=== PATIENT | male | born 1970 | race Caucasian/White ===

== ENCOUNTER 2017-10-29 21:41 | Emergency (ER) | payer OTHER ==
[2017-10-29 22:45] LABS: Absolute Lymphocytes (CBC) 1.2 K/uL (0.7-4.9); Absolute Monocytes 0.5 K/uL (0.1-1.3); Absolute Neutrophil 1.8 K/uL (1.8-8.0); Basophils % 0.4 % (0-1.3); Eosinophils % 1.5 % (0-4.4); Hematocrit 37.4 % (39.6-49.0); Lymphocytes % 33.5 % (15.3-44.8); MCH 33.3 pg (27.0-35.0); MCV 97.3 fL (80-100); RBC Red Blood Cell Count 3.85 M/uL (4.33-5.43)
[2017-10-29 22:53] LABS: Bicarbonate 28 mEq/L (21-31); Glucose Level 116 mg/dL (65-120); Lipase 37 U/L (22-51); Potassium 3.2 mEq/L (3.6-5.0); Sodium Level 139 mEq/L (135-145)
[2017-10-29 22:59] LABS: ALT/SGPT 17 IU/L (10-60); AST/SGOT 21 IU/L (10-42); Albumin 3.7 g/dL (3.2-5.5); Alkaline Phosphatase 108 IU/L (42-121); BUN Blood Urea Nitrogen 8 mg/dL (6-20); Bilirubin Direct 0.1 mg/dL (0-0.2); Bilirubin Total 0.4 mg/dL (0.3-1.2); Glomerular Filtration Rate > 90 mL/min (=/>90); Protein, Total 6.4 g/dL (6.0-8.3)
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
[2017-10-30 00:26] VITALS: TEMP 97.8
[2017-10-30 00:27] VITALS: BP 100/79; O2SAT 96
[2017-10-30 00:51] LABS: Urine Culture Reflex Order NOT NEEDED
[2017-10-30 00:52] LABS: Urine Blood NEGATIVE (NEG); Urine Glucose NEGATIVE (NEG); Urine Protein NEGATIVE (NEG); Urine Specific Gravity 1.015 (1.005-1.030); Urine pH 8.5 (5.0-7.0)
[2017-10-30 00:52] LABS: Urine Bacteria <20 /HPF (NONE SEEN); Urine RBC <5 /HPF (NONE SEEN)
--- NOTE | 2017-10-30 08:38 | RAD REPORT ---
EXAM DESCRIPTION: CT - Stone Protocol - 10/30/2017 6:11 am CLINICAL HISTORY: Flank pain. Blood in stool. COMPARISON: 09/07/2013 TECHNIQUE: Axial images were obtained without oral or IV contrast. Lack of contrast limits solid org an and vascular assessment. The [id number] spans the entirety of the system partially obscuring uppermost abdomen and lung bases. Coronal reformatted images were obtained and reviewed. All CT scans are performed using dose optimization technique as appropriate and may include automated exposure control or mA/KV adjustment according to patient size. FINDINGS: The lower lung fu are clear. Cholecystectomy clips. Imaged portions of the liver and spleen show no suspicious findings on non-contrast imaging. The panc reas and adrenal glands are normal. No pathologic lymphadenopathy in the abdomen or pelvis. Punctate left renal calculi. No hydronephrosis. No bowel obstruction, free air, free fluid or abscess. Appendectomy suspected.Moderate fecal retentio n in the colon. Scattered diverticulosis coli without diverticulitis. Old compression deformity affects the L2 vertebral body. IMPRESSION: Punctate left renal calculi. No hydronephrosis. Moderate fecal retention in the colon.
== END 2017-10-30 00:21 | disposition home or self-care (01) ==
LOC: ER 21:41
DX: K92.2 Gastrointestinal hemorrhage, unspecified (principal); G40.909 Epilepsy, unspecified, not intractable, without status epilepticus; Z88.1 Allergy status to other antibiotic agents; Z88.3 Allergy status to other anti-infective agents
CPT/HCPCS: 36415; 74176; 76377; 80048; 80076; 81003; 81015; 83690; 85025; 99284

== ENCOUNTER 2018-02-12 20:05 | Emergency (ER) | payer OTHER ==
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
[2018-02-12 21:37] VITALS: BP 122/82; TEMP 97.9; O2SAT 96
== END 2018-02-12 21:28 | disposition home or self-care (01) ==
LOC: ER 20:05
DX: Z04.1 Encounter for examination and observation following transport accident (principal); V49.50XA Passenger injured in collision with unspecified motor vehicles in traffic accident, initial encounter; R62.50 Unspecified lack of expected normal physiological development in childhood
CPT/HCPCS: 99281

== ENCOUNTER 2019-02-15 23:10 | Emergency (ER) | payer OTHER ==
--- OUTSIDE RECORDS SUMMARY | 2019-02-15 23:15 | XMS REPORT ---
:1970 [facility] [address] [place] [address] Dr. Orta [address] [place] [id number] Care Team Providers Name Role Phone Unavailable Unavailable Unavailable Problems This patient has no known problems. Allergies, Adverse Reactions, Alerts This patient has no known allergies or adverse reactions. Medications This patient has no known medications.
--- NOTE | 2019-02-16 02:59 | ER ---
Nurse's Notes [facility] Name: Torey Pineda Age: 48 yrs Sex: Male : 1970 Arrival Date: 02/15/2019 Time: 23:13 Bed 3 Private MD: Diagnosis: Epilepsy and recurrent seizures Presentation: 02/15 23:21 Presenting complaint: EMS states: Patient had witnessed seizure by Home Health lp1 Provider, noted to be foaming at the mouth which is not normal for patient's seizures, post-ictal on arrival of EMS; Per provider, patient is not usually this confused after seizure. Transition of care: patient was not received from another setting of care. Onset of symptoms was February 15, 2019. Risk Assessment: Do you want to hurt yourself or someone else? Patient reports no desire to harm self or others. Initial Sepsis Screen: Does the patient meet any 2 criteria? No. Patient's initial sepsis screen is negative. Does the patient have a suspected source of infection? No. Patient's initial sepsis screen is negative. Care prior to arrival: Glucose check: 99. 23:21 Method Of Arrival: EMS: [facility] lp1 23:21 Acuity: TAWNYA 2 lp1 Triage Assessment: 02/16 00:05 General: Appears in no apparent distress. comfortable, Behavior is calm, cooperative, ao appropriate for age. Historical: - Allergies: 02/15 23:32 Cephalexin; lp1 23:32 Keflex; lp1 - Home Meds: 23:32 Depakote 500 mg Oral TbEC 1 tab 3 times per day [Active]; Seroquel 400 mg Oral tab lp1 nightly [Active]; Lamictal 100 mg Oral tab 1 tab 2 times per day [Active]; Risperdal 2 mg Oral tab 2 times per day [Active]; levothyroxine 25 mcg tab 1 tab once daily [Active]; carbamazepine 200 mg Oral tab 2 tabs three times a day [Active]; Vimpat 50 mg oral tab 1 tab 2 times per day [Active]; gabapentin 800 mg Oral tab 1 tab 3 times per day [Active]; docusate sodium 100 mg Oral cap 2 caps once daily [Active]; - PMHx: 23:32 Anemia; INTERMITTENT EXPLOSIVE DISORDER; Pilonidol Cyst; Seizures; SUPERFICIAL lp1 KERATITIS; Schizophrenia; - PSHx: 23:32 Unable to obtain; lp1 - Immunization history:: Adult Immunizations up to date. - Social history:: Smoking status: Patient/guardian denies using tobacco. - Ebola Screening: : No symptoms or risks identified at this time. Screenin/24 00:05 Abuse screen: Denies threats or abuse. Denies injuries from another. Nutritional ao screening: No deficits noted. Tuberculosis screening: No symptoms or risk factors identified. Fall Risk None identified. Assessment: 02/15 23:20 General: Appears in no apparent distress. comfortable, Behavior is calm, cooperative, ao appropriate for age. Pain: Denies pain. Neuro: Level of Consciousness is awake, alert, obeys commands, Oriented to person, Moves all extremities. Full function Speech is normal, Facial symmetry appears normal. Cardiovascular: Reports None Capillary refill < 3 seconds Patient's skin is warm and dry. Respiratory: Airway is patent Respiratory effort is even, unlabored, Respiratory pattern is regular, symmetrical. GI: Abdomen is round obese. : No signs and/or symptoms were reported regarding the genitourinary system. EENT: No signs and/or symptoms were reported regarding the EENT system. Derm: Skin is intact, Skin is pink, warm \\T\\ dry. normal, Skin temperature is warm. Musculoskeletal: Circulation, motion, and sensation intact. Range of motion: intact in all extremities. 02/16 00:03 Reassessment: Patient refused IV. Patient was agitated and state, "I don't want and IV. ao I'll take my medicine.". TRISHA Corbett was notified and stated to just watch him. 01:15 Reassessment: Called Patient Ombudsperson of patient's place of residence, states to contact 1 patient's mother who is legal guardian, Yvonnerocio Fabaina, no answer from mother at [phone] or [phone]. 02:37 Reassessment: Patient appears in no apparent distress at this time. Patient and/or ao family updated on plan of care and expected duration. Pain level reassessed. Patient under do distress. Waiting on X-ray results. 03:06 Reassessment: Spoke with Rupali, dry starch supervisor of [facility]; States she cannot leave [facility] to shredder picker patient, will call back when she is able to arrange transportation. 03:57 Reassessment: Patient appears in no apparent distress at this time. Patient and/or ao family updated on plan of care and expected duration. Pain level reassessed. Waiting emotionally impaired teacher back from Rupali, dry starch supervisor of [facility]. 04:55 Reassessment: Patient was discovered having seizure activity at 0430. Seizure lasted ao about 3-4 min. IV was started while patient seizing and lab work was collected and sent to the lab. Patient in postictal stage was confused and agitated trying to get off bed. Patient was move to ER trauma room 3 for close monitoring. 05:55 Reassessment: Patient appears in no apparent distress at this time. Patient and/or ao family updated on plan of care and expected duration. Pain level reassessed. Patient sleeping with no SS of distress. Waiting on Lab work results. 06:05 Reassessment: Provider verbal order to administer Keppra 1 g IV now and patient's home lp1 dose of Depakote. 06:29 Reassessment: Spoke to Ruapli and stated she will be picking patient up in few min. ao 06:55 Reassessment: Called Rupali again and stated patient will be shredder picker in few min. Patient ao is Ready waiting in a wheelchair. 07:00 Reassessment: RECD REPORT FROM BRITTANY DICKEY. 48YO WM WITH H/O MR AND SZ. TRANSPORT PENDING. bp 07:13 Reassessment: TRANSPORT ON SCENE. PT [facility] WITH SENIOR CARE. bp Vital Signs: 02/15 23:24 BP 114 / 82; Pulse 96; Resp 18; Temp 99(O); Pulse Ox 94% on R/A; Weight 79.38 kg; lp1 Height 5 ft. 5 in. (165.10 cm); Pain 0/10; 02/16 01:27 BP 121 / 93; Pulse 85; Resp 15; Pulse Ox 97% on R/A; lp1 02:37 BP 123 / 91; Pulse 82; Resp 16; Pulse Ox 97% on R/A; Pain 0/10; ao 03:50 BP 114 / 82; Pulse 80; Resp 16; Pulse Ox 100% on R/A; ao 04:25 BP 130 / 85; Pulse 86; Resp 18; Pulse Ox 100% on R/A; ao 04:35 BP 147 / 98; Pulse 115; Resp 30; Pulse Ox 96% on Non-rebreather mask; ao 05:07 BP 113 / 66; Pulse 93; Resp 15; Pulse Ox 97% on R/A; Pain 0/10; ao 06:01 BP 99 / 83; Pulse 78; Resp 13; Pulse Ox 98% on R/A; ao 02/15 23:24 Body Mass Index 29.12 (79.38 kg, 165.10 cm) lp1 Damaso Coma Score: 00:05 Eye Response: spontaneous(4). Verbal Response: oriented(5). Motor Response: obeys ao commands(6). Total: 15. ED Course: 02/15 23:13 Patient arrived in ED. ak1 23:20 Brittany Barros, RN is Primary Nurse. ao 23:24 Triage completed. lp1 23:25 Arm band placed on. lp1 23:32 Placed in gown. Bed in low position. Call light in reach. Seizure precautions initiated.lp1 23:33 Darien Ramirez PA is PHCP. cp 23:33 Omer Mathews MD is Attending Physician. cp 02/16 02:10 X-ray completed. Portable x-ray completed in exam room. Patient tolerated procedure kw well. 02:12 XRAY Chest (1 view) In Process Unspecified. EDMS 04:40 Initial lab(s) drawn, by me, sent to lab. Inserted saline lock: 18 gauge in left jb4 antecubital area, using aseptic technique. Blood collected. 06:41 No provider procedures requiring assistance completed. Patient did not have IV access ao during this emergency room visit. intact, bleeding controlled, No redness/swelling at site. Pressure dressing applied. Administered Medications: 06:23 Drug: Keppra 1000 mg Route: IV; Rate: per protocol; Site: left antecubital; ao 07:13 Follow up: IV Status: Completed infusion; IV Intake: 100ml bp 06:23 Drug: Depakote 500 mg Route: PO; ao 07:13 Follow up: Response: No adverse reaction bp Intake: 07:13 IV: 100ml; Total: 100ml. bp Output: 06:25 Urine: 1000ml (Voided); Total: 1000ml. ao Outcome: 02:58 Discharge ordered by . cp 06:41 Discharged to home ambulatory. ao 06:41 Condition: stable 06:41 Discharge instructions given to patient, Instructed on discharge instructions, follow up and referral plans. Demonstrated understanding of instructions, follow-up care, medications. 07:14 Patient left the ED. bp Signatures: Dispatcher [employer] EDJannette Villatoro Laura, RN RN lp1 Sade Pavon RN RN ak1 Darien Ramirez PA PA cp Ortiz, Alex, RN RN Kendrick Salcedo RN RN jb4 Robert Moore RN RN bp Corrections: (The following items were deleted from the chart) 01:59 01:28 Reassessment: No changes from previously documented assessment. Patient and/or lp1 family updated on plan of care and expected duration. Pain level reassessed. lp1
--- NOTE | 2019-02-16 02:59 | EDPHYS ---
Physician Documentation [facility] Name: Torey Pineda Age: 48 yrs Sex: Male : 1970 Arrival Date: 02/15/2019 Time: 23:13 Bed 3 Private MD: ED Physician Omer Mathews HPI: 02/16 00:10 This 48 yrs old Male presents to ER via EMS with complaints of Seizure. cp 00:10 The patient presents after having a single isolated seizure, that lasted an unknown cp period of time, the episode(s) was witnessed, staff at residence. Character of seizure(s): Loss of consciousness: the patient experienced loss of consciousness, Motor activity: generalized, shaking all over, reported foaming at the mouth. Seizure onset: today. Seizure Hx: Last seizure: The patient's last seizure is unknown, Usual frequency: unknown, Seizure medications: Lamictal, tegretol, Depakote. Associated injury: The patient did not suffer any apparent associated injury. Historical: - Allergies: 02/15 23:32 Cephalexin; lp1 23:32 Keflex; lp1 - Home Meds: 23:32 Depakote 500 mg Oral TbEC 1 tab 3 times per day [Active]; Seroquel 400 mg Oral tab lp1 nightly [Active]; Lamictal 100 mg Oral tab 1 tab 2 times per day [Active]; Risperdal 2 mg Oral tab 2 times per day [Active]; levothyroxine 25 mcg tab 1 tab once daily [Active]; carbamazepine 200 mg Oral tab 2 tabs three times a day [Active]; Vimpat 50 mg oral tab 1 tab 2 times per day [Active]; gabapentin 800 mg Oral tab 1 tab 3 times per day [Active]; docusate sodium 100 mg Oral cap 2 caps once daily [Active]; - PMHx: 23:32 Anemia; INTERMITTENT EXPLOSIVE DISORDER; Pilonidol Cyst; Seizures; SUPERFICIAL lp1 KERATITIS; Schizophrenia; - PSHx: 23:32 Unable to obtain; lp1 - Immunization history:: Adult Immunizations up to date. - Social history:: Smoking status: Patient/guardian denies using tobacco. - Ebola Screening: : No symptoms or risks identified at this time. ROS: 02/16 00:15 Constitutional: Negative for fever. cp 00:15 Neuro: Positive for history of seizure. cp 00:15 Unable to obtain ROS due to intellectual disability. Exam: 00:20 ECG was reviewed by the Attending Physician. cp 00:22 Constitutional: The patient appears in no acute distress, alert, awake, cp non-diaphoretic, non-toxic, well developed, well nourished. 00:22 Head/Face: Normocephalic, atraumatic. cp 00:22 Eyes: Periorbital structures: appear normal, Pupils: equal, round, and reactive to light and accomodation, Conjunctiva: normal, no exudate, no injection, Lids and lashes: appear normal, bilaterally. 00:22 ENT: External ear(s): are unremarkable, Nose: is normal, Mouth: Lips: moist, Oral mucosa: pink and intact, moist, Posterior pharynx: Airway: no evidence of obstruction, patent. 00:22 Neck: ROM/movement: is normal, is supple, without pain, no range of motions limitations, no nuchal rigidity. 00:22 Chest/axilla: Inspection: normal, Palpation: is normal, no crepitus, no tenderness. 00:22 Cardiovascular: Rate: normal, Rhythm: regular. 00:22 Respiratory: the patient does not display signs of respiratory distress, Respirations: normal, no use of accessory muscles, no retractions, no splinting, no tachypnea, labored breathing, is not present, Breath sounds: are clear throughout, no decreased breath sounds, no stridor, no wheezing. 00:22 Abdomen/GI: Inspection: abdomen appears normal, Palpation: abdomen is soft and non-tender, in all quadrants. 00:22 Back: vertebral tenderness, is not appreciated. 00:22 Neuro: Orientation: no acute changes, Mentation: no acute changes, Motor: moves all fours, strength is normal. Vital Signs: 02/15 23:24 BP 114 / 82; Pulse 96; Resp 18; Temp 99(O); Pulse Ox 94% on R/A; Weight 79.38 kg; lp1 Height 5 ft. 5 in. (165.10 cm); Pain 0/10; 02/16 01:27 BP 121 / 93; Pulse 85; Resp 15; Pulse Ox 97% on R/A; lp1 02:37 BP 123 / 91; Pulse 82; Resp 16; Pulse Ox 97% on R/A; Pain 0/10; ao 03:50 BP 114 / 82; Pulse 80; Resp 16; Pulse Ox 100% on R/A; ao 04:25 BP 130 / 85; Pulse 86; Resp 18; Pulse Ox 100% on R/A; ao 04:35 BP 147 / 98; Pulse 115; Resp 30; Pulse Ox 96% on Non-rebreather mask; ao 05:07 BP 113 / 66; Pulse 93; Resp 15; Pulse Ox 97% on R/A; Pain 0/10; ao 06:01 BP 99 / 83; Pulse 78; Resp 13; Pulse Ox 98% on R/A; ao 02/15 23:24 Body Mass Index 29.12 (79.38 kg, 165.10 cm) lp1 Nunda Coma Score: 00:05 Eye Response: spontaneous(4). Verbal Response: oriented(5). Motor Response: obeys ao commands(6). Total: 15. MDM: 02/15 23:48 Patient medically screened. cp 02/16 02:55 Data reviewed: vital signs, nurses notes, EKG, radiologic studies, plain films. Test cp interpretation: by ED physician or midlevel provider: chest xray negative for infiltrates. ED course: VSS. Patient appears back to baseline. No seizure activity observed while in ED. Will discharge back to patient's intermediate care facility. 02/15 23:47 Order name: Acetaminophen cp 02/15 23:47 Order name: Basic Metabolic Panel; Complete Time: 06:38 cp 02/16 06:39 Interpretation: Within normal limits: GFR 84. tw4 02/15 23:47 Order name: CBC with Diff; Complete Time: 06:38 cp 02/16 06:39 Interpretation: Within normal limits. tw4 02/15 23:47 Order name: ETOH Level; Complete Time: 06:38 cp 02/15 23:47 Order name: Hepatic Function; Complete Time: 06:38 cp 02/16 06:39 Interpretation: Normal except: AST 14; GLOB 3.8. tw4 02/15 23:47 Order name: PT-INR; Complete Time: 06:38 cp 02/15 23:47 Order name: Ptt, Activated; Complete Time: 06:38 cp 02/15 23:47 Order name: Salicylate; Complete Time: 06:38 cp 07/24 06:39 Interpretation: Within normal limits: MILTON 1.8. tw4 02/15 23:47 Order name: Urine Drug Screen; Complete Time: 06:38 cp 02/15 23:47 Order name: Carbamazepine (tegretol); Complete Time: 06:38 cp 02/15 23:47 Order name: Depakote; Complete Time: 06:38 cp 02/15 23:48 Order name: Acetaminophen Level; Complete Time: 06:38 EDMS 02/16 01:58 Order name: XRAY Chest (1 view) cp 02/16 05:57 Order name: Urine Dipstick--Ancillary (enter results); Complete Time: 06:38 mw2 02/15 23:47 Order name: EKG; Complete Time: 23:50 cp 02/15 23:47 Order name: EKG - Nurse/Tech; Complete Time: 00:11 cp 02/15 23:47 Order name: Urine Dipstick-Ancillary (obtain specimen); Complete Time: 05:11 cp 02/16 05:11 Order name: IV Saline Lock; Complete Time: 05:11 ao 02/16 05:11 Order name: Labs collected and sent; Complete Time: 05:12 ao EC:20 Rate is 87 beats/min. Rhythm is regular. PA interval is normal. QRS interval is normal. cp QT interval is normal. Interpreted by me. Reviewed by me. Administered Medications: 06:23 Drug: Keppra 1000 mg Route: IV; Rate: per protocol; Site: left antecubital; ao 07:13 Follow up: IV Status: Completed infusion; IV Intake: 100ml bp 06:23 Drug: Depakote 500 mg Route: PO; ao 07:13 Follow up: Response: No adverse reaction bp Disposition: 03:10 Chart complete. cp Disposition: 02/16/19 02:58 Discharged to Home. Impression: Epilepsy and recurrent seizures. - Condition is Stable. - Discharge Instructions: Seizure, Adult. - Medication Reconciliation Form, Thank You Letter, Antibiotic Education, Prescription Opioid Use form. - Follow up: Emergency Department; When: As needed; Reason: Worsening of condition. - Problem is an acute exacerbation. - Symptoms have improved. Signatures: Dispatcher [employer] EDNM Leticia Snyder RN RN lp1 Darien Ramirez PA PA cp Ortiz, Alex, RN RN ao Peltier, Brian, RN RN bp Omer Mathews MD MD tw4 Corrections: (The following items were deleted from the chart) 00:06 02/15 23:49 IV Saline Lock ordered. cp ao 02/16 00:07 02/15 23:49 Labs collected and sent ordered. goldie matias 02/16 07:14 02:58 02/16/2019 02:58 Discharged to Home. Impression: Epilepsy and recurrent seizures. bp Condition is Stable. Forms are Medication Reconciliation Form, Thank You Letter, Antibiotic Education, Prescription Opioid Use. Follow up: Emergency Department; When: As needed; Reason: Worsening of condition. Problem is an acute exacerbation. Symptoms have improved. cp
[2019-02-16 05:27] LABS: Absolute Lymphocytes (CBC) 3.6 K/uL (0.7-4.9); Basophils % 0.3 % (0-1.3); Hematocrit 45.2 % (39.6-49.0); Lymphocytes % 44.4 % (15.3-44.8); MPV 8.8 fL (7.6-11.3); RBC Red Blood Cell Count 4.54 M/uL (4.33-5.43)
[2019-02-16 05:31] LABS: Protime INR 0.98
[2019-02-16 05:35] LABS: Barbiturates NEGATIVE (NEGATIVE); Benzodiazepines NEGATIVE (NEGATIVE); Cocaine NEGATIVE (NEGATIVE); METHAMPHETAM NEGATIVE (NEGATIVE); Methadone NEGATIVE (NEGATIVE); Opiates NEGATIVE (NEGATIVE); Phencyclidine NEGATIVE (NEGATIVE); THC Cannibis NEGATIVE (NEGATIVE)
[2019-02-16 05:58] LABS: ALT/SGPT 21 U/L (12-78); AST/SGOT 14 U/L (15-37); Albumin 4.1 g/dL (3.4-5.0); Alkaline Phosphatase 60 U/L (45-117); BUN Blood Urea Nitrogen 12 mg/dL (7-18); Bicarbonate 23 mmol/L (21-32); Bilirubin Direct 0.1 mg/dL (0-0.2); Bilirubin Total 0.4 mg/dL (0.2-1.0); Glucose Level 92 mg/dL (74-106); Potassium 3.9 mmol/L (3.5-5.1); Protein, Total 7.9 g/dL (6.4-8.2); Sodium Level 143 mmol/L (136-145)
[2019-02-16 06:09] LABS: Urine Blood NEGATIVE (NEG); Urine Glucose NEGATIVE (NEG); Urine Protein NEGATIVE (NEG)
[2019-02-16] MEDS ORDERED: LEVETIRACETAM 500 MG/5 ML VIAL IV ONE ×2 (06:27)
[2019-02-16] MEDS ORDERED: NA CHLORIDE 0.9% 100 ML IV ONE (06:28)
[2019-02-16] MEDS ORDERED: DIVALPROEX DR 250 MG TAB PO ONE (06:28)
[2019-02-16 07:23] VITALS: TEMP 99
[2019-02-16 07:33] VITALS: BP 99/83; O2SAT 98
--- NOTE | 2019-02-16 08:43 | RAD REPORT ---
EXAM DESCRIPTION: RAD - Chest Single View - 02/16/2019 2:13 am CLINICAL HISTORY: Seizure, shortness of breath COMPARISON: August 2017 TECHNIQUE: AP portable chest image was obtained 0211 hours . FINDINGS: Very low lung volumes noted. This accentuates interstitial pattern. No substantial change from the comparison. No focal mass, consolidation or significant failure finding. Trachea is midline. Heart and vasculature are normal. No measurable pleural effusion and no pneumothorax. No acute bone findings seen. There is chronic right-sided AC joint separation. No acute aortic findings suspected. IMPRESSION: Limited shallow inspiration film without an acute cardiopulmonary finding. No clear change from the prior examination.
--- NOTE | 2019-02-16 10:35 | EKG ---
Test Date: 2019-02-16 Test Time: 00:10:50 Shellfish Grower: LAVON MEASUREMENT RESULTS: Intervals: Rate: 87 MO: 186 QRSD: 84 QT: 374 QTc: 450 [place]: P: 51 MO: 186 QRS: 23 T: 43 INTERPRETIVE STATEMENTS: Normal sinus rhythm Normal ECG Compared to ECG 09/22/2017 08:26:17 No significant changes Electronically Signed On 02-16-19 10:34:17 CDT by Ashkan Redding
== END 2019-02-16 07:14 | disposition home or self-care (01) ==
LOC: ER 23:10
DX: G40.909 Epilepsy, unspecified, not intractable, without status epilepticus (principal); F20.9 Schizophrenia, unspecified; Z88.1 Allergy status to other antibiotic agents; Z79.899 Other long term (current) drug therapy
CPT/HCPCS: 36415; 71045; 80048; 80076; 80156; 80164; 80307; 80320; 80329; 81003; 82962; 85025; 85610; 85730; 93005; 96365; 99284; J1953

== ENCOUNTER 2020-12-14 20:01 | Emergency (ER) | payer OTHER ==
--- OUTSIDE RECORDS SUMMARY | 2020-12-14 20:04 | XMS REPORT | Continuity of Care Document ---
:1970 Author Organization [facility] t Address [address] [place] [address] Care Team Providers Name Role Phone Sondra Primary Care Physician Radiology Attending Clinician Unavailable Doctor Unassigned, Name Attending Clinician Unavailable Badawy DO Attending Clinician Pob, Lab Main Attending Clinician Unavailable Ferny PAC, S Attending Clinician Feliz WAYNE, A Attending Clinician Robles WAYNE, J Attending Clinician Durga HUTSON, G Attending Clinician Lab, Fam Pob I Attending Clinician Unavailable Payers Payer Name Policy Type Policy Effective Date Expiration Date Sour ce Number [facility] [id number] 2014 Univers ity of COMM PLAN - 00:00:00 [place] [facility] MANAGED Branch [place] [id number] -PresentMed icaid Problems Condition Condition Condition Status Onset Resolution Last Treating Co mments Source Name Details Category Date Date Treatment Clinician Date Pain in Pain in Disease Active 2017-07 Univers limb limb - ity of 00:00: [address] Seizures Seizures Disease Active 2017-07 Unive rs 1- ity of 00:00: [address] PNA PNA Disease Active 2017-07 Univers (pneumonia (pneumonia 0-30 it y of ) ) 00:00: [address] Pneumonia Pneumonia Disease Active 2017-07 Uni vers 0-29 ity of 00:00: [place] 00 Medical Branch Allergies, Adverse Reactions, Alerts Allergy Allergy Status Severity Reaction(s) Onset Inactive Treating Comm ents Source Name Type Date Date Clinician Pilar Morales Active Unknown - 2019-07 Caregiver Univers in ty to See comments 2-21 is not ity of adverse 00:00: aware. [place] reaction 00 Medical s Branch Social History Social Habit Start Date Stop Date Quantity Comments Source Exposure to Not sure [facility] SARS-CoV-2 [place] [facility] (event) Branch Tobacco use and 2020-09-01 2020-09-01 Never used Universit y of exposure 00:00:00 00:00:00 [facility] Alcohol intake 2020-09-01 2020-09-01 Current University of 00:00:00 00:00:00 non-drinker of [facility] alcohol Branch (finding) Sex Ass[birth year] At [birth year] Universit y of 00:00:00 00:00:00 [facility] Smoking Status Start Date Stop Date Source Never smoker [facility] Medications Ordered Filled Start Stop Current Ordering Indication Dosage Frequency Signature Comments Components Source Medication Medication Date Date Medication? Clinician (SIG) Name Name barium 2020- No [id number] 340g 340 g, Univ ers sulfate 11-29- Oral, ity of (LIQUID E-Z 16:15: 15:31 ONCE, 1 [facility] FLORINDA) 60 % 00 :00 dose, [place] Med ical (w/v) oral 11/29/20 at Bran ch suspension 1115, 340 g Routine azithromyci Yes Atypical 250mg Take 1 Univers n 250 mg 1-07 pneumonia tablet by i ty of tablet 00:00: mouth [place] 00 daily. Medical Take 500 Branch mg day 1, then 250 mg days 2 to 5. metoprolol 2019-07 Yes Take by Uni vers hopson-hydrochl 2-21 mouth. ity of orothiaz 21:01: [place] 100-12.5 mg 29 Medical Tb24 Branch metoprolol 2019-07 Yes 12.5mg Take 12.5 Univers tartrate 2-21 mg by ity of 12.5 mg 21:01: mouth [place] 29 daily. Medical Branch QUEtiapine 2019-07 Yes 400mg Take 400 Un sera 400 mg 2-21 mg by ity of tablet 21:01: mouth at [place] 29 bedtime. Medical Branch risperiDONE 2019-07 Yes 3mg Take 3 mg U nivers 3 mg tablet 2-21 by mouth ity of 21:01: at [place] 29 bedtime. Medical Branch divalproex 2019-07 Yes 500mg Take 500 Un sera 500 mg EC 2-21 mg by ity of tablet 21:01: mouth [place] 29 every 8 Medical (eight) Branch hours. lamoTRIgine 2019-07 Yes 100mg Take 100 U nivers 100 mg 2-21 mg by ity of tablet 21:01: mouth 2 [place] 29 (two) Medical times Branch daily. levothyroxi 2017-07 Yes 25ug Take 25 Uni vers ne 25 mcg 1-03 mcg by ity of tablet 02:01: mouth [place] 39 every Medical morning. Branch docusate 2017-07 Yes 100mg Take 100 Univ ers 100 mg 1-03 mg by ity of capsule 02:01: mouth [place] 39 daily. Medical Branch gabapentin 2017-07 Yes 800mg Take 800 Un sera 800 mg 1-03 mg by ity of tablet 02:01: mouth 3 [place] 39 (three) Medical times Branch daily. carBAMazepi 2017-07 Yes 300mg Take 1.5 U nivers ne 200 mg 1-02 tablets by ity of tablet 00:00: mouth [place] 00 every 8 Medical (eight) Branch hours. Immunizations Ordered Filled Immunization Date Status Comments Sourc e Immunization Name Name Td 2020-07-16 Completed University of 00:00:00 [facility] PPD (TB) 2020-05-03 Completed University of 00:00:00 [facility] Influenza Virus 2020-04-19 Completed Universit y of Vaccine Quad IM 3+ 00:00:00 [facility] YRS Branch Influenza Virus 2019-06-02 Completed Universit y of Vaccine Quad .5 mL 00:00:00 [facility] 6+ MO Branch Influenza High Dose 2016-04-30 Completed Unive rsity of 00:00:00 [facility] Influenza High Dose 2014-05-19 Completed Unive rsity of 00:00:00 [facility] Influenza Virus 2013-06-15 Completed Universit y of Vaccine (3+ yrs) 00:00:00 [facility] [place] [facility] Influenza Virus 2012-06-11 Completed Universit y of Vaccine (3+ yrs) 00:00:00 [facility] Procedures Procedure Date / Time Performed Performing Clinician Sourc e FL BARIUM SWALLOW 2020-11-29 15:59:49 [facility] Plan of Care Planned Activity Planned Date Details Comments Source Future Scheduled 2020 [facility] blood in feces Medical Branc h (procedure) [code = 133899050] Future Scheduled 2020 Stool DNA-based Universi ty [facility] Test 00:00:00 colorectal cancer Medical Br anch screening (procedure) [code = 190394715458823] Future Scheduled 2020 [facility]00 sigmoidoscopy Medical Branch (procedure) [code = 70196909] Future Scheduled 2020 Screening for [facility] Test 00:00:00 malignant neoplasm of Medica l Branch colon (procedure) [code = 896271127] Future Scheduled 2020 Screening for [facility] Test 00:00:00 malignant neoplasm of Medica l Branch colon (procedure) [code = 496660046] Future Scheduled 2020 Zoster [facility]com[facility]00 Vaccine (SHINGRIX) (1 Medica l Branch of 2) [code = Zoster Recombinant Vaccine (SHINGRIX) (1 of 2)] Future Scheduled 1989 [facility]Tdap,[facility] Td [facility] Vaccines (1 - Tdap) Medical Branch [code = DTaP,Tdap,and Td Vaccines (1 - Tdap)] Future Scheduled 1988 Hepatitis C [facility]00 (procedure) [code = Medical Branch [id number]] Future Scheduled 1986 SARS-CoV-2 (COVID-19) [facility]00 Vaccine (1) [code = Medical Branch SARS-CoV-2 (COVID-19) Vaccine (1)] Future Scheduled 1982 [facility]:00 (procedure) [code = Medical Branch [id number]] Encounters Start End Encounter Admission Attending Care Care Encounter Source Date/Time Date/Time Type Type Clinicians Facility Department ID 2020-11-29 2020-11-29 Hospital Radiology [facility] [id number] 09:24:30 23:59:00 Encounter [place] [id number] [place] [id number] [place] [id number] 2020-11-29 2020-11-29 Orders Doctor LERNER [id number] 00:00:00 00:00:00 Only Unassigned, VIDAL [id number] [place] [facility] [id number] [id number] 2020-09-01 2020-09-01 Emergency Badlizyy, [facility] [place] [id number] 12:24:00 14:50:00 Health [id number] [place] 4.2.7.2.686 [place] [id number] Hospital 014 (CLC) 2020-08-24 2020-08-24 Hospital Radiology [place] [id number] 13:48:56 23:59:00 Encounter [place] [id number] [place] [id number] [place] [id number] 2020-08-24 2020-08-24 Mercantile Agent Heydi Junior [place] [id number] 13:44:18 13:59:18 Visit Lab Main [place] [id number] [place] [id number] [phone] [address] 2020-08-02 2020-08-02 Emergency Isaacs, [place] [id number] 11:34:00 18:40:00 Melissa S [place] [id number] [place] 4.2.7.2.686 [place] [id number] 2020-08-01 2020-08-01 Mercantile Agent Heydi Junior [place] [id number] 09:14:28 09:29:28 Visit Lab Main [place] [id number] [place] [id number] Professio [phone] [address] 2020-08-01 2020-08-01 Orders Doctor LERNER [id number] 00:00:00 00:00:00 Only Unassigned, VIDAL [id number] [place] [facility] 4.2.7.2.686 [id number] 2020-07-20 2020-07-21 Emergency Feliz, [place] [id number] 22:35:00 01:48:00 Ketan Flores Health [id number] [place] 4.2.7.2.686 [place] [id number] [facility] 014 ([facility]) 2020-07-16 2020-07-16 Emergency Vasut, TRAUMA [id number] 16:17:00 21:05:00 [facility] [id number] [id number] [id number] 014 2020-07-16 2020-07-16 Emergency Drenavdeep, [place] [id number] 10:31:00 15:51:00 Lesley Chavez [id number] [place] 4.2.7.2.686 [place] [id number] 084 2020-06-06 2020-06-06 Laboratory Lab, [facility] [id number] 11:05:03 11:25:03 Only Fam Sandi I Health [id number] [place] 4.2.7.2.686 Profess[place] [id number] nal [address] 2019-09-28 2019-09-28 Mercantile Agent Sandi [facility] [id number] 09:00:00 09:15:00 Visit Lab Main Kathy [id number] [place] 4.2.7.2.686 Profess[place] [phone] nal 353 Building 2019-09-28 2019-09-28 Orders Doctor EDUARDA [id number] 00:00:00 00:00:00 Only Unassigned, VIDAL 350.1.13.10 [place] [facility] 4.2.7.2.686 [id number] Results Test Description Test Test Results Result Source Time Comments Comments FL BARIUM 2020-11- Demb, Radiant Results Uni versity of SWALLOW 06 Inft - 11/29/2020 [facility] ESOPHAGUS 16:13:17 11:14 AM CDTHISTORY: Bran ch Coughing when swallowing.TECHNIQUE: Barium swallow/esophagram were obtained using overheadradiography technique as well as digital fluoroscopic technique done by mewith the patient in multiple positions.FINDINGS: This examination is somewhat limited due to difficulty by thepatient in cooperating.Swallowing function appear normal. Esophagus appears of normal size andshape with no focal mucosal lesions. No stricture or diverticula seen. Iwas unable to demonstrate hiatal hernia with Valsalva technique. Nogastroesophageal reflux. Sluggish peristalsis was noted in the loweresophagus allowing prolonged retention of the barium in the esophageallumen.Electro lexi along with wires are seen in the neck with battery packimplanted over the lateral left chest wall.CONCLUSIONS:1. Mild esophageal dysmotility with sluggish peristalsis noted in the loweresophagus.2. Small amount of barium was aspirated by the patient during ovaryradiography. The aspirated barium is seen in the upper trachea. During myfluoroscopic evaluation, there was no additional aspiration into the larynxor trachea.3. Note made of thoracic kyphosis with degenerative spondylosis of theentire thoracic spines and multiple wedge shaped fracture deformity in theupper thoracic vertebral bodies.
[2020-12-14 21:07] LABS: Absolute Lymphocytes (CBC) 1.3 K/uL (0.7-4.9); Basophils % 0.3 % (0-1.3); Hematocrit 37.9 % (39.6-49.0); Lymphocytes % 27.3 % (15.3-44.8); MPV 8.1 fL (7.6-11.3); RBC Red Blood Cell Count 3.87 M/uL (4.33-5.43)
[2020-12-14 21:22] LABS: BUN Blood Urea Nitrogen 9 mg/dL (7-18); Bicarbonate 28 mmol/L (21-32); Glucose Level 108 mg/dL (74-106); Potassium 3.9 mmol/L (3.5-5.1); Sodium Level 144 mmol/L (136-145)
--- NOTE | 2020-12-14 21:40 | ER ---
Nurse's Notes [facility] Name: Torey Pineda Age: 50 yrs Sex: Male : 1970 Arrival Date: 12/14/2020 Time: 20:07 Bed 13 Private MD: Diagnosis: Hemorrhoids and perianal venous thrombosis Presentation: 12/14 20:11 Chief complaint: Pt caregiver stated pt was at a day-hab when facility noticed pt had vg1 blood on his pants. Pt does have a hx of hemoids. Coronavirus screen: Client denies travel out of the [place] in the last 14 days. Ebola Screen: Patient negative for fever greater than or equal to 101.5 degrees Fahrenheit, and additional compatible Ebola Virus Disease symptoms. Initial Sepsis Screen: Does the patient meet any 2 criteria? No. Patient's initial sepsis screen is negative. Does the patient have a suspected source of infection? No. Patient's initial sepsis screen is negative. Risk Assessment: Do you want to hurt yourself or someone else? Patient reports no desire to harm self or others. Onset of symptoms was December 14, 2020. 20:11 Method Of Arrival: Ambulatory vg1 20:11 Acuity: TAWNYA 3 vg1 Triage Assessment: 20:16 General: Appears in no apparent distress. comfortable, Behavior is calm, cooperative. vg1 Pain: Denies pain. Historical: - Allergies: 20:16 Cephalexin; vg1 20:16 Keflex; vg1 - Home Meds: 20:16 carbamazepine 200 mg Oral tab 2 tabs three times a day [Active]; Depakote 500 mg Oral vg1 TbEC 1 tab 3 times per day [Active]; docusate sodium 100 mg Oral cap 2 caps once daily [Active]; gabapentin 800 mg Oral tab 1 tab 3 times per day [Active]; Lamictal 100 mg Oral tab 1 tab 2 times per day [Active]; levothyroxine 25 mcg tab 1 tab once daily [Active]; Risperdal 2 mg Oral tab 2 times per day [Active]; Seroquel 400 mg Oral tab nightly [Active]; Vimpat 50 mg Oral tab 1 tab 2 times per day [Active]; - PMHx: 20:16 SUPERFICIAL KERATITIS; Seizures; Schizophrenia; Pilonidol Cyst; INTERMITTENT EXPLOSIVE vg1 DISORDER; Anemia; - Immunization history:: Adult Immunizations up to date, Client reports receiving the 2nd dose of the Covid vaccine. - Social history:: Smoking status: Patient denies any tobacco usage or history of. Screenin:19 Abuse screen: Denies threats or abuse. Denies injuries from another. Nutritional jm8 screening: No deficits noted. Tuberculosis screening: No symptoms or risk factors identified. Fall Risk None identified. Assessment: 21:18 General: Appears in no apparent distress. comfortable, Behavior is calm, cooperative, jm8 appropriate for age. Pain: Denies pain. Neuro: No deficits noted. Level of Consciousness is awake, alert, obeys commands, Oriented to person, place, time. Cardiovascular: No deficits noted. Respiratory: No deficits noted. Airway is patent Trachea midline Respiratory effort is even, unlabored. GI: Parent/caregiver reports the patient having hemorrhoids, since today rectal bleeding. : No deficits noted. No signs and/or symptoms were reported regarding the genitourinary system. EENT: No deficits noted. No signs and/or symptoms were reported regarding the EENT system. Derm: No deficits noted. No signs and/or symptoms reported regarding the dermatologic system. Derm: Skin is intact, is healthy with good turgor, Skin is dry, Skin is pink, warm \T\ dry. Skin temperature is warm. Musculoskeletal: No deficits noted. No signs and/or symptoms reported regarding the musculoskeletal system. Vital Signs: 20:11 BP 137 / 96; Pulse 82; Resp 82; Temp 97.7; Pulse Ox 99% ; Pain 0/10; vg1 20:50 BP 132 / 86 LA Supine (auto/reg); Pulse 81; Resp 18 S; Pulse Ox 99% on R/A; jp3 ED Course: 20:07 Patient arrived in ED. mr 20:14 Triage completed. vg1 20:16 Arm band placed on Patient placed in waiting room, Patient notified of wait time. vg1 20:23 Susie Garland FNP-C is [facility]. kb 20:23 Darrel Holguin MD is Attending Physician. kb 20:44 Initial lab(s) drawn, by me, sent to lab. T\T\S collected, blood band applied to patient. jp3 Inserted saline lock: 22 gauge in left antecubital area, using aseptic technique. Blood collected. Patient maintains SpO2 saturation greater than 95% on room air. 20:52 Safety checks: Family/friend present: yes. Placed in gown. Bed in low position. Call jp3 light in reach. Side rails up X2. Warm blanket given. Verbal reassurance given. Pulse ox on. NIBP on. 21:52 No provider procedures requiring assistance completed. IV discontinued, intact, linda bleeding controlled. Administered Medications: No medications were administered Outcome: 21:40 Discharge ordered by . cindy 21:54 Discharged to home ambulatory, with family. linda 21:54 Condition: good 21:54 Discharge instructions given to patient, family, Instructed on discharge instructions, follow up and referral plans. medication usage, Demonstrated understanding of instructions, follow-up care, medications, Prescriptions given X 1. 22:00 Patient left the ED. linda Signatures: Susie Garland, PANTOGRAPH MACHINE OPERATOR-C PANTOGRAPH MACHINE OPERATOR-Shima Garcia mr Turcios, Jose jp3 Linh Sharma, RN RN vg1 Cheng Fischer, RN RN jm8
--- NOTE | 2020-12-14 21:41 | EDPHYS ---
Physician Documentation [facility] Name: Torey Pineda Age: 50 yrs Sex: Male : 1970 Arrival Date: 12/14/2020 Time: 20:07 Bed 13 Private MD: ED Physician Darrel Holguin HPI: 12/14 23:28 This 50 yrs old Male presents to ER via Ambulatory with complaints of Rectal kb Bleeding. 23:28 The patient presents to the emergency department with bleeding from the rectum/anus. kb Onset: The symptoms/episode began/occurred today. Context: the patient has a known history of hemorrhoids. Modifying factors: The symptoms are alleviated by nothing, The symptoms are aggravated by nothing. Associate signs and symptoms: The patient has no apparent associated signs or symptoms. The patient has not experienced similar symptoms in the past. The patient has not recently seen a physician. Caregiver reports the place pt goes during the day said they noticed blood on his pants around 1700. . Historical: - Allergies: 20:16 Cephalexin; vg1 20:16 Keflex; vg1 - Home Meds: 20:16 carbamazepine 200 mg Oral tab 2 tabs three times a day [Active]; Depakote 500 mg Oral vg1 TbEC 1 tab 3 times per day [Active]; docusate sodium 100 mg Oral cap 2 caps once daily [Active]; gabapentin 800 mg Oral tab 1 tab 3 times per day [Active]; Lamictal 100 mg Oral tab 1 tab 2 times per day [Active]; levothyroxine 25 mcg tab 1 tab once daily [Active]; Risperdal 2 mg Oral tab 2 times per day [Active]; Seroquel 400 mg Oral tab nightly [Active]; Vimpat 50 mg Oral tab 1 tab 2 times per day [Active]; - PMHx: 20:16 SUPERFICIAL KERATITIS; Seizures; Schizophrenia; Pilonidol Cyst; INTERMITTENT EXPLOSIVE vg1 DISORDER; Anemia; - Immunization history:: Adult Immunizations up to date, Client reports receiving the 2nd dose of the Covid vaccine. - Social history:: Smoking status: Patient denies any tobacco usage or history of. ROS: 23:27 Constitutional: Negative for fever, chills, and weight loss. kb 23:27 Abdomen/GI: Positive for rectal bleeding, Negative for abdominal pain, nausea, vomiting, and diarrhea. 23:27 All other systems are negative. Exam: 23:27 Constitutional: This is a well developed, well nourished patient who is awake, alert, kb and in no acute distress. Head/Face: Normocephalic, atraumatic. ENT: Moist Mucous membranes Respiratory: Respirations even and unlabored. No increased work of breathing, no retractions or nasal flaring. Skin: Warm, dry with normal turgor. Normal color. MS/ Extremity: Pulses equal, no cyanosis. Neurovascular intact. Full, normal range of motion. Psych: Awake, alert, with orientation to person, place and time. Behavior, mood, and affect are within normal limits. 23:27 Abdomen/GI: Inspection: abdomen appears normal, Bowel sounds: normal, Palpation: abdomen is soft and non-tender, in all quadrants, Rectal exam: hemorrhoid(s), external, with associated bleeding, with inflammation. Vital Signs: 20:11 BP 137 / 96; Pulse 82; Resp 82; Temp 97.7; Pulse Ox 99% ; Pain 0/10; vg1 20:50 BP 132 / 86 LA Supine (auto/reg); Pulse 81; Resp 18 S; Pulse Ox 99% on R/A; jp3 MDM: 20:23 Patient medically screened. kb 23:27 Data reviewed: vital signs, nurses notes. Data interpreted: Pulse oximetry: on room air kb is 99 %. Interpretation: normal. Counseling: I had a detailed discussion with the patient and/or guardian regarding: the historical points, exam findings, and any diagnostic results supporting the discharge/admit diagnosis, lab results, the need for outpatient follow up, a family practitioner, to return to the emergency department if symptoms worsen or persist or if there are any questions or concerns that arise at home. 12/14 20:29 Order name: CBC with Diff; Complete Time: 21:09 kb 12/14 20:29 Order name: Basic Metabolic Panel; Complete Time: 21:28 kb Administered Medications: No medications were administered Disposition: 12/15 04:13 Co-signature as Attending Physician, Darrel Holguin MD. mh7 Disposition: 12/14/20 21:40 Discharged to Home. Impression: Hemorrhoids and perianal venous thrombosis. - Condition is Stable. - Discharge Instructions: Hemorrhoids, [id number]. - Prescriptions for Anusol- HC 2.5 % Rectal Cream - Apply to affected area 1 application by TOPICAL route every 8 hours As needed; 30 gram. - Medication Reconciliation Form, Thank You Letter, Antibiotic Education, Prescription Opioid Use form. - Follow up: Emergency Department; When: As needed; Reason: Worsening of condition. Follow up: Private Physician; When: 2 - 3 days; Reason: Recheck today's complaints, Continuance of care, Re-evaluation by your physician. Signatures: Dispatcher [employer] EDSusie Umana, MARIVEL-C MARIVEL-Linh Ely, RN RN vg1 Darrel Holguin MD MD mh7 Cheng Fischer RN RN jm8 Corrections: (The following items were deleted from the chart) 12/14 22:00 21:40 12/14/2020 21:40 Discharged to Home. Impression: Hemorrhoids and perianal venous jm8 thrombosis. Condition is Stable. Forms are Medication Reconciliation Form, Thank You Letter, Antibiotic Education, Prescription Opioid Use. Follow up: Emergency Department; When: As needed; Reason: Worsening of condition. Follow up: Private Physician; When: 2 - 3 days; Reason: Recheck today's complaints, Continuance of care, Re-evaluation by your physician. kb
[2020-12-14 22:31] VITALS: TEMP 97.7; O2SAT 99
[2020-12-14 22:38] VITALS: BP 132/86
== END 2020-12-14 22:00 | disposition home or self-care (01) ==
LOC: ER 20:01
DX: K64.5 Perianal venous thrombosis (principal); F20.9 Schizophrenia, unspecified; Z88.1 Allergy status to other antibiotic agents
CPT/HCPCS: 36415; 80048; 85025; 99284